=== PATIENT | female | born 1945 | race Caucasian/White ===

== ENCOUNTER → 2017-03-07 | Outpatient (CLI) | payer MEDICARE, MEDICAID ==
[2017-03-07] VITALS (12 sets, daily range): BP systolic 129–163; BP diastolic 60–89; PULSE 64–75
[~2017-03-07] VITALS: Ht 165.1 cm; Wt 81.6 kg
[~2017-03-07] MED LIST: ALBUTEROL0.09 MG/A1 IH; AMITIZA 8MCG8 MCG PO; AMITRIPTYLINE H10 M1 PO; AMOXICILLIN 8751 TAB PO; ANASTROZOLE1 MG PO; ARIMIDEX PO; ARIMIDEX1 MG; ARIMIDEX1 MG PO; ASPIRIN E.C. 8181 MG PO; ATIVAN 0.50.5 MG/TAB PO; ATIVAN1 MG PO; AUGMENTIN; AUGMENTIN 875 M1 TAB PO; BIAXIN; CALCIUM CITRAT200 MG PO; CORDARONE200 MG/TAB PO; CORICIDIN HBP1 EACH; DETROL LA4 PO; DOC-Q-LACE PO; DOCUSATE SODIU100 MG PO; DYAZIDE 25 MG-31 CAP PO; EFFEXOR-XR150 MG PO; ERY-TAB250 MG PO; GERITOL COMPLET1 TA1 PO; GUAIFENESIN PO; HIGH BP MED; HYDROCODONE/APAP PO; IRON; IRON65 M1 PO; KLONOPIN 0.5MG0.5 MG PO; LASIX; LEVAQUIN 5500 MG/TA1 PO; LIPITOR20 MG PO; LOMOTIL 0.025 M1 TAB PO; LORAZEPAM1 MG PO; LORTAB 5/500 501 TAB PO; LORTAB 7.5/5001 TAB PO; MAXZIDE; MAXZIDE-25MG TA1 TAB PO; MECLIZINE25 MG PO; MIRALAX17 GM/DOSE PO; MORPHINE S10 MG/5 M1 PO; NEURONTIN400 MG/CAP PO; NIFEDIPINE10 M1 PO; NIGHT-TIME COL300 ML PO; NORCO 325 MG-51 TAB PO; NORMODYNE100 MG PO; NORMODYNE200 MG PO; OMEPRAZOLE20 MG PO; OMEPRAZOLE40 MG PO; PERCR 7.5 PO; PLAVIX 75MG TAB75 MG PO; PREDNISONE20 MG PO; PREMARIN .3MG0.3 MG PO; PREVACID30 MG PO; PRIL40; PRILOSEC 20MG20 MG PO; PROBIOTIC FORMU1 CAP PO; PROCARDIA 10MG10 MG PO; PROCARDIA10 MG PO; PROFERRIN PO; PROTONIX 40MG T40 MG PO; PROTONIX20 MG PO; REGLAN 10MG10 MG/TAB PO; ROPINIROLE HY0.25 MG PO; SENNA; SINGULAIR PO; STOOL SOFTENER100 M2 PO; TESSALON PERLE100 MG PO; TRIAMTERENE AND1 TA1 PO; TRIAMTERENE W/H1 CAP PO; TUSS PO; VALIUM 2MG T2 MG/TAB PO; VENLAFAXINE75 M1 PO; VENLAFAXINE75 MG PO; VICODIN 5/5001 UDTAB PO; VICODIN PO; VITAMIN C500 MG PO; XANAX .25M0.25 MG/TA PO; XARELTO20 MG PO; ZYRTEC 10MG10 MG PO; [UNRECOGNIZED DRUG - OTHER]; [UNRECOGNIZED DRUG - OTHER]; detrol LA
[2017-03-07 13:05] LABS: PROTHROMBIN TIME 11.5 SECONDS (9.7-12.8)
--- NOTE | 2017-03-07 13:36 | NUR ---
PT IS ON THE TABLE AND DR MATHIAS IS HERE AND WENT OVER THE RISKS AND BENEFITS. PT IS CALM AND RELAXED.
--- NOTE | 2017-03-07 13:46 | NUR ---
GIVEN 0.5MG VERSED AND FENTANYL 25MCG. PT HAS SOME PAIN WHEN GIVEN LIDOCAIN.
--- NOTE | 2017-03-07 13:50 | NUR ---
GIVEN 0.5MG VERSED AND 25MCG FENTANYL.
--- NOTE | 2017-03-07 14:23 | NUR ---
PT BROUGHT BACK TO RAD HOLDING. PT STATES PAIN 05/02. SPOKE TO DR MATHIAS AND REC'D ORDER. PT GIVEN NORCO 5/325MG X1 DOSE.
--- NOTE | 2017-03-07 14:31 | NUR ---
family brought back to rad holding. pt given norco 5/325mg tab.
--- NOTE | 2017-03-07 14:56 | NUR ---
PT RESTING COMFORTABLY WITH EVEN RESP. VSS.
--- NOTE | 2017-03-07 15:38 | NUR ---
DOING WELL. SITTING IN THE RECLINER. PAIN HAS IMPROVED
--- NOTE | 2017-03-07 15:39 | NUR ---
SITTING DOING PUZZLES. FAMILY PRESENT. PAIN IMPROVED
--- NOTE | 2017-03-07 15:40 | NUR ---
PT DRANK APPLE JUICE AND IS NOW GIVEN ICE WATER. PT STATES SHE IS HUNGRY. VSS
--- NOTE | 2017-03-07 15:41 | NUR ---
PT DENIES NEEDS AT PRESENT
== END ==
LOC: COL.RAD 12:22
PROVIDERS: Internal Medicine Pulmonary Disease
DX: C78.7 Secondary malignant neoplasm of liver and intrahepatic bile duct (principal)
CPT/HCPCS: J2250; J3010; Q9967

== ENCOUNTER 2017-04-11 05:20 | Day surgery (SDC) | payer MEDICARE, MEDICAID ==
[~2017-04-11] VITALS: Ht 162.6 cm; Wt 82.5 kg
[~2017-04-11 05:20] MED LIST changes: -AMITIZA 8MCG8 MCG PO; -CORDARONE200 MG/TAB PO; -CORICIDIN HBP1 EACH; -MAXZIDE-25MG TA1 TAB PO; -PROBIOTIC FORMU1 CAP PO; -STOOL SOFTENER100 M2 PO; -XANAX .25M0.25 MG/TA PO; -XARELTO20 MG PO; -ZYRTEC 10MG10 MG PO
[2017-04-11 06:18] VITALS: BP 145/75; PULSE 78; TEMP 97.6
[2017-04-11] MEDS ORDERED: STOOL SOFTENER100 M2 PO (06:35)
[2017-04-11] MEDS ORDERED: AMITIZA 8MCG8 MCG PO (06:36)
[2017-04-11 08:06] VITALS: BP 140/70; PULSE 74; TEMP 98.4
[2017-04-11 08:15] VITALS: BP 131/66; PULSE 68
[2017-04-11 08:30] VITALS: BP 146/72; PULSE 64
[2017-04-11 08:45] VITALS: BP 141/70; PULSE 66
[2017-04-11 09:00] VITALS: BP 148/69; PULSE 65
== END 2017-04-11 09:38 | disposition home or self-care (01) ==
LOC: SDCO 05:20
DX: C78.7 Secondary malignant neoplasm of liver and intrahepatic bile duct (principal); K21.9 Gastro-esophageal reflux disease without esophagitis; I10 Essential (primary) hypertension; G47.33 Obstructive sleep apnea (adult) (pediatric); M19.90 Unspecified osteoarthritis, unspecified site; J44.9 Chronic obstructive pulmonary disease, unspecified; F41.9 Anxiety disorder, unspecified; Z90.13 Acquired absence of bilateral breasts and nipples; Z86.73 Personal history of transient ischemic attack (TIA), and cerebral infarction without residual deficits; Z85.3 Personal history of malignant neoplasm of breast; Z83.3 Family history of diabetes mellitus
CPT/HCPCS: C1788; J0690; J1644; J2250; J2405; J2704; J3010; J7120

== ENCOUNTER → 2018-03-22 | Outpatient (CLI) | payer MEDICARE, MEDICAID ==
[~2018-03-22] MED LIST changes: +AMITIZA 8MCG8 MCG PO; +STOOL SOFTENER100 M2 PO
== END ==
LOC: COL.RAD 08:24
DX: C50.412 Malignant neoplasm of upper-outer quadrant of left female breast (principal); R16.0 Hepatomegaly, not elsewhere classified
CPT/HCPCS: Q9967

== ENCOUNTER → 2018-05-24 | Outpatient (CLI) | payer MEDICARE, MEDICAID | LOC: COL.RAD 12:32 | DX: C50.412 Malignant neoplasm of upper-outer quadrant of left female breast (principal); K76.9 Liver disease, unspecified; N81.89 Other female genital prolapse; Z98.890 Other specified postprocedural states; Z90.710 Acquired absence of both cervix and uterus | CPT/HCPCS: Q9967 ==

== ENCOUNTER 2018-11-22 14:56 | Inpatient (IN) | payer MEDICARE, MEDICAID ==
[~2018-11-22] VITALS: Ht 165.1 cm; Wt 87.5 kg
[2018-11-22] VITALS (123 sets, daily range): BP systolic 129–130; BP diastolic 68–76; PULSE 77–82; TEMP 97.8–98; O2SAT 61–100
[2018-11-22 15:34] LABS: BASO # 0.1 (0.0-0.2); BASO % 1.4 % (0.0-2.0); EOS # 0.1 (0.0-0.7); EOS % 2.5 % (0-4.0); GRAN # 2.2 (1.4-6.5); GRAN % 39.3 % (42.2-75.2); HEMOGLOBIN 10.3 g/dl (12.5-16.0); LYMPH # 2.4 (1.2-3.4); LYMPH % 42.8 % (20.0-51.0); MEAN CELL VOLUME 102 fl (80.0-100.0); MEAN CORPUSCULAR HEMOGLOBIN 32 pg (27.0-31.0); MEAN CORPUSCULAR HGB CONC 31 g/dl (33.0-37.0); MEAN PLATELET VOLUME 9.6 fl (7.4-10.4); MONO # 0.8 (0.1-0.6); MONO % 13.6 % (1.7-9.3); PLATELET COUNT 254 K/mm3 (130-400); RED BLOOD COUNT 3.23 M/mm3 (4.10-5.30); REDCELL DISTRIBUTION WIDTH-CV 16.7 % (11.5-14.5)
[2018-11-22 15:39] LABS: HEMATOCRIT 32.9 % (37.0-47.0)
[2018-11-22 15:40] LABS: ALBUMIN 3.4 gm/dL (3.5-5.0); BILIRUBIN,TOTAL 0.2 mg/dL (0.0-1.0); CALCIUM 9.7 mg/dL (8.4-10.2); CREATININE, serum 1.25 (0.52-1.25); MAGNESIUM 1.8 mg/dL (1.6-2.3); POTASSIUM 4.3 mmol/L (3.4-5.0); TOTAL PROTEIN 6.4 gm/dL (6.4-8.2)
[2018-11-22] MEDS ORDERED: XANAX .25M0.25 MG/TA PO (15:42)
[2018-11-22] MEDS ORDERED: PROTONIX 40MG T40 MG PO (15:43)
[2018-11-22] MEDS ORDERED: MAXZIDE-25MG TA1 TAB PO (15:43)
[2018-11-22] MEDS ORDERED: NEURONTIN400 MG/CAP PO (15:45)
[2018-11-22] MEDS ORDERED: GERITOL COMPLET1 TA1 PO (15:45)
[2018-11-22] MEDS ORDERED: ZYRTEC 10MG10 MG PO (15:45)
[2018-11-22] MEDS ORDERED: CORICIDIN HBP1 EACH (15:46)
[2018-11-22] MEDS ORDERED: PROBIOTIC FORMU1 CAP PO (15:47)
--- NOTE | 2018-11-22 18:00 | NUR ---
Patient arrives to ICU. She is able to transfer from cart to bed. She appears to be in regular rhythm. EKG ordered. No complaints at this time. automation tech called to come perform ECHO at bedside. Assessment completed. All systems WNL. Will continue to monitor.
--- NOTE | 2018-11-22 19:20 | NUR ---
Bedside report given to RACHANA Aponte
--- NOTE | 2018-11-22 19:54 | NUR ---
received report from bashir blanc.
--- NOTE | 2018-11-22 22:21 | NUR ---
called hospitalist to ask for pain medication for my patient. she was complaining of pain in her abdomen. stated it was a 6/10 and a sharp stabbing feeling.
[2018-11-23] VITALS (521 sets, daily range): BP systolic 115–161; BP diastolic 23–84; PULSE 63–120; TEMP 97.6–98.6; O2SAT 38–100
--- NOTE | 2018-11-23 00:40 | NUR ---
PATIENT HAS HAD ABOUT 3 COUGHING SPELLS WHERE HER HEARTRATE SPIKES IN THE 100'S FOR A MINUTE OR SO. THE HIGHEST HER HEART RATE HAS GOTTEN DURING ONE OF THESE COUGHING SPELLS WAS 130. HEART RATE RETURNED TO 73 WITHIN 2 MINUTES OR LESS. WILL CONTINUE TO MONITOR PATIENT.
[2018-11-23 05:21] LABS: BASO # 0.1 (0.0-0.2); BASO % 1.1 % (0.0-2.0); EOS # 0.2 (0.0-0.7); EOS % 3.2 % (0-4.0); GRAN % 37.3 % (42.2-75.2); HEMATOCRIT 31.9 % (37.0-47.0); HEMOGLOBIN 9.9 g/dl (12.5-16.0); LYMPH # 2.5 (1.2-3.4); LYMPH % 46.3 % (20.0-51.0); MEAN CELL VOLUME 104 fl (80.0-100.0); MEAN CORPUSCULAR HEMOGLOBIN 32 pg (27.0-31.0); MEAN CORPUSCULAR HGB CONC 31 g/dl (33.0-37.0); MEAN PLATELET VOLUME 9.4 fl (7.4-10.4); MONO # 0.6 (0.1-0.6); MONO % 11.7 % (1.7-9.3); PLATELET COUNT 188 K/mm3 (130-400); RED BLOOD COUNT 3.06 M/mm3 (4.10-5.30); REDCELL DISTRIBUTION WIDTH-CV 16.6 % (11.5-14.5)
[2018-11-23 05:35] LABS: CALCIUM 9.6 mg/dL (8.4-10.2); CREATININE, serum 1.09 (0.52-1.25); POTASSIUM 4.5 mmol/L (3.4-5.0)
--- NOTE | 2018-11-23 07:42 | NUR ---
gave report to bashir killian.
--- NOTE | 2018-11-23 10:23 | NUR ---
Time Out conducted, Dr Griggs at bedside, anesthesia at bedside. 1024: ROB and cardioversion started.
--- NOTE | 2018-11-23 10:33 | NUR ---
Initial visit; Patient and family thanked Gas Main Fitter for looking in on her and offering Spiritual Care.
--- NOTE | 2018-11-23 10:41 | NUR ---
Pt handed to RN, for recovery
--- NOTE | 2018-11-23 11:21 | NUR ---
Pt d/c'ed from mod sedation recovery, pt awake, denies pain, remains on previous 02 of 2L with spo2 of 98%. Pt in NSR, remains on Cardizem at this time awaiting transition and pt to recieve xarelto per Dr. Mondragon cardiology. Will continue to monitor.
--- NOTE | 2018-11-23 16:18 | NUR ---
HUSAM met with patient and family to disucss discharge planning. Patient reports she lives at home with her brother and plans to return there upon discharge. Patient's PCP is Dr Medina and she obtains prescriptions from [facility]. Patient does not have any home health services and she does have home o2 but no other DME is reported. Patient does have a DPOA in the EMR. SW does not anticipate any discharge needs but will continue to follow as needed.
--- NOTE | 2018-11-23 18:19 | NUR ---
patient arrived to the Medical floor from ICU at this time, she is alert/oriented, denies any problems or concerns, helped her to the bathroom, tele is on she is in SR 65 bpm, multiple family members present i nthe room, she dneies needs
--- NOTE | 2018-11-23 20:30 | NUR ---
Initial shift assessment done- denies pain at this time-- Tele on-SR,, no requests, PAC to right chest
[2018-11-24 03:41] VITALS: BP 135/70; PULSE 59; TEMP 98
--- NOTE | 2018-11-24 05:56 | NUR ---
Quiet night- was up to bathroom with assist throughout the night,, was given [place] once during the night for abd pain. VSS. Tele -SR
[2018-11-24 07:08] LABS: BASO # 0.1 (0.0-0.2); EOS # 0.2 (0.0-0.7); EOS % 3.9 % (0-4.0); GRAN % 40.7 % (42.2-75.2); LYMPH # 2.1 (1.2-3.4); LYMPH % 42.8 % (20.0-51.0); MEAN CELL VOLUME 105 fl (80.0-100.0); MEAN CORPUSCULAR HGB CONC 31 g/dl (33.0-37.0); MEAN PLATELET VOLUME 9.6 fl (7.4-10.4); MONO # 0.6 (0.1-0.6); MONO % 11.4 % (1.7-9.3); PLATELET COUNT 164 K/mm3 (130-400); RED BLOOD COUNT 2.87 M/mm3 (4.10-5.30); REDCELL DISTRIBUTION WIDTH-CV 16.5 % (11.5-14.5)
[2018-11-24 07:12] LABS: HEMOGLOBIN 9.2 g/dl (12.5-16.0); MEAN CORPUSCULAR HEMOGLOBIN 32 pg (27.0-31.0)
[2018-11-24 07:43] VITALS: BP 142/56; PULSE 77; TEMP 98.3
--- NOTE | 2018-11-24 08:10 | NUR ---
PATIENT ASSESSMENT COMPLETED. PATIENT COMPLAINS OF A COUGH THAT IS NON PRODUCTIVE.PRN PAIN MEDICATION GIVEN PER REQUEST.BREAKFAST ORDERED
[2018-11-24] MEDS ORDERED: XARELTO20 MG PO (10:04)
[2018-11-24] MEDS ORDERED: CORDARONE200 MG/TAB PO ×2 (10:08→10:09)
--- NOTE | 2018-11-24 11:20 | NUR ---
Provided spiritual care, listened and visited with the patient. I prayed with the patient before leaving.
--- NOTE | 2018-11-24 12:21 | NUR ---
PATIENT DISCHARGE PAPERWORK GIVEN TO PATIENT, SIGNIFICANT OTHER AND DAUGHTER. THEY DENY FURTHER QUESTIONS. SO WILL CALL ONCOLOGIST MONDAY TO SCHEDULE AND WILL MAKE SURE TO GET SCHEDULE WITHPCP IN 1 WEEK AND CARDIOLOGY IN 2 WEEKS. THEIR OFFICES SHOULD CALL TO SCHEDULE.
--- NOTE | 2018-11-26 16:36 | NUR ---
Discharge orders reviewed with the patient and her daughter, instructed to follow up with PCP as scheduled/ pending labs results with , referral sent to GI to follow up on +FOBT, instructed to use Tylenol for pain/ and follow recs of PCP otherwise, PT/OT referal given, IV removed, she is leaving with her duaghter, i personally escorted her out by wheelchair
== END 2018-11-24 11:50 | disposition home or self-care (01) | DRG 309 ==
LOC: COL.ER 14:56 → ICU 15:54 → MEDICAL 11-23 17:46
PROVIDERS: Emergency Medicine; Family Medicine; ADMIT Hospitalist
DX: I48.91 Unspecified atrial fibrillation (principal); C78.7 Secondary malignant neoplasm of liver and intrahepatic bile duct; Z85.3 Personal history of malignant neoplasm of breast; Z90.10 Acquired absence of unspecified breast and nipple; I10 Essential (primary) hypertension; E78.5 Hyperlipidemia, unspecified; G62.9 Polyneuropathy, unspecified; Z88.1 Allergy status to other antibiotic agents; Z88.7 Allergy status to serum and vaccine; Z87.891 Personal history of nicotine dependence; F41.9 Anxiety disorder, unspecified; I48.92 Unspecified atrial flutter; K59.09 Other constipation
CPT/HCPCS: 99222-AI; 99232-AI; 99239; J1170; J2704; J7030

== ENCOUNTER → 2019-01-02 | Outpatient (CLI) | payer MEDICARE, MEDICAID ==
[~2019-01-02] MED LIST changes: +CORDARONE200 MG/TAB PO; +CORICIDIN HBP1 EACH; +MAXZIDE-25MG TA1 TAB PO; +PROBIOTIC FORMU1 CAP PO; +XANAX .25M0.25 MG/TA PO; +XARELTO20 MG PO; +ZYRTEC 10MG10 MG PO
== END ==
LOC: COL.RAD 01-01 11:00
DX: Z01.812 Encounter for preprocedural laboratory examination (principal); C50.412 Malignant neoplasm of upper-outer quadrant of left female breast; C78.7 Secondary malignant neoplasm of liver and intrahepatic bile duct; J18.1 Lobar pneumonia, unspecified organism
CPT/HCPCS: Q9967

== ENCOUNTER 2019-12-26 11:15 | Emergency (ER) | payer MEDICARE, MEDICAID ==
[~2019-12-26] VITALS: Ht 165.1 cm; Wt 86.8 kg
[2019-12-26 12:30] LABS: BASO % 0.9 % (0.0-2.0); EOS # 0.1 (0.0-0.7); GRAN # 2.1 (1.4-6.5); GRAN % 48.7 % (42.2-75.2); HEMATOCRIT 30.4 % (37.0-47.0); HEMOGLOBIN 9.8 g/dl (12.5-16.0); LYMPH # 1.6 (1.2-3.4); LYMPH % 35.6 % (20.0-51.0); MEAN CELL VOLUME 108 fl (80.0-100.0); MEAN CORPUSCULAR HEMOGLOBIN 35 pg (27.0-31.0); MEAN CORPUSCULAR HGB CONC 32 g/dl (33.0-37.0); MEAN PLATELET VOLUME 9.8 fl (7.4-10.4); MONO # 0.5 (0.1-0.6); MONO % 11.3 % (1.7-9.3); PLATELET COUNT 128 K/mm3 (130-400); RED BLOOD COUNT 2.82 M/mm3 (4.10-5.30); REDCELL DISTRIBUTION WIDTH-CV 15.3 % (11.5-14.5)
[2019-12-26 12:46] LABS: ALBUMIN 3.8 gm/dL (3.5-5.0); BILIRUBIN,TOTAL 0.4 mg/dL (0.0-1.0); CREATININE, serum 1.54 (0.52-1.25); POTASSIUM 4.2 mmol/L (3.4-5.0)
[2019-12-26 14:23] VITALS: BP 156/78; PULSE 56; TEMP 97.5
== END 2019-12-26 14:28 | disposition home or self-care (01) ==
LOC: COL.ER 11:15
PROVIDERS: Emergency Medicine
DX: K59.09 Other constipation (principal); C78.7 Secondary malignant neoplasm of liver and intrahepatic bile duct; I10 Essential (primary) hypertension; E78.5 Hyperlipidemia, unspecified; Z79.82 Long term (current) use of aspirin; Z85.3 Personal history of malignant neoplasm of breast; Z90.13 Acquired absence of bilateral breasts and nipples
CPT/HCPCS: J3010; J7040; Q9967

== ENCOUNTER → 2020-02-11 | Outpatient (CLI) | payer MEDICARE, MEDICAID | LOC: COL.RAD 08:48 | DX: C50.912 Malignant neoplasm of unspecified site of left female breast (principal) | CPT/HCPCS: A9503 ==

== ENCOUNTER 2020-07-17 15:09 | Emergency (ER) | payer MEDICARE, MEDICAID ==
[~2020-07-17] VITALS: Ht 165.1 cm; Wt 85.0 kg
[2020-07-17] MEDS ORDERED: ZOLOFT 100MG100 MG PO (16:08)
[2020-07-17] MEDS ORDERED: SYNTHROID0.05 MG/TA PO (16:09)
[2020-07-17] MEDS ORDERED: CARDIZEM120 MG PO (16:09)
[2020-07-17] MEDS ORDERED: FLEXERIL5 MG PO (16:10)
[2020-07-17] MEDS ORDERED: NORCO 325 MG-7.1 TAB PO (16:10)
[2020-07-17] MEDS ORDERED: PHENERGAN 25 TA25 MG PO (16:11)
[2020-07-17] MEDS ORDERED: AMITIZA 8MCG8 MCG PO (16:11)
[2020-07-17 16:47] LABS: BASO # 0.1 (0.0-0.2); BASO % 0.8 % (0.0-2.0); EOS # 0.2 (0.0-0.7); GRAN # 6.1 (1.4-6.5); GRAN % 68.1 % (42.2-75.2); LYMPH # 1.6 (1.2-3.4); LYMPH % 18.3 % (20.0-51.0); MEAN CELL VOLUME 108 fl (80.0-100.0); MEAN CORPUSCULAR HGB CONC 31 g/dl (33.0-37.0); MEAN PLATELET VOLUME 10.4 fl (7.4-10.4); MONO # 0.9 (0.1-0.6); MONO % 10.5 % (1.7-9.3); PLATELET COUNT 124 K/mm3 (130-400); RED BLOOD COUNT 2.81 M/mm3 (4.10-5.30); REDCELL DISTRIBUTION WIDTH-CV 17.3 % (11.5-14.5)
[2020-07-17 16:58] LABS: ALANINE AMINOTRANSFERASE 42 U/L (4-34); ALKALINE PHOSPHATASE 179 U/L (50-136); ANION GAP 5 mmol/L (7-16); AST,SGOT 73 U/L (15-37); BILIRUBIN,TOTAL 0.5 mg/dL (0.0-1.0); BLOOD UREA NITROGEN 25 mg/dL (7-17); CALCIUM 9.4 mg/dL (8.4-10.2); CARBON DIOXIDE 25 mmol/L (22-30); CHLORIDE 105 mmol/L (98-107); CREATININE, serum 1.38 (0.52-1.25); GLUCOSE 103 mg/dL (74-106); LIPASE 58 U/L (23-300); POTASSIUM 4.3 mmol/L (3.4-5.0); SODIUM 134 mmol/L (137-145)
[2020-07-17 17:03] LABS: HEMATOCRIT 30.2 % (37.0-47.0); HEMOGLOBIN 9.4 g/dl (12.5-16.0); MEAN CORPUSCULAR HEMOGLOBIN 33 pg (27.0-31.0)
[2020-07-17 17:25] LABS: TROPONIN-I < 0.012 ng/mL (0.000-0.035)
[2020-07-17] MEDS ORDERED: DILAUDID 2MG TAB2 MG PO (18:18)
[2020-07-17 18:20] LABS: COLLECTION METHOD CLEAN CATCH
[2020-07-17 18:35] LABS: MUCOUS Present /lpf; PH 5 (5-8); URINE APPEARANCE Clear; URINE BACTERIA None Seen /hpf; URINE BILIRUBIN Negative (NEGATIVE); URINE BLOOD Negative (NEGATIVE); URINE CALCIUM OXALATE CRYSTAL Present /hpf; URINE COLOR Yellow; URINE GLUCOSE Negative (NEGATIVE); URINE KETONE Negative (NEGATIVE); URINE LEUKOCYTE ESTERASE Trace (NEGATIVE); URINE NITRATE Negative (NEGATIVE); URINE PROTEIN(semi-quant) Negative (NEGATIVE)
[2020-07-17 18:57] VITALS: BP 126/64; PULSE 61; TEMP 98.4
[2020-07-17] MEDS ORDERED: MACROBID 1100 MG/CAP PO ×2 (18:59)
[2020-07-17] MEDS ORDERED: LEVAQUIN 750MG750 M1 PO (19:04)
== END 2020-07-17 19:10 | disposition home or self-care (01) ==
LOC: COL.ER 15:09
PROVIDERS: Emergency Medicine
DX: G89.29 Other chronic pain (principal); Z88.1 Allergy status to other antibiotic agents; Z79.82 Long term (current) use of aspirin

== ENCOUNTER 2020-09-07 11:45 | Inpatient (IN) | payer MEDICARE, MEDICAID ==
[~2020-09-07] VITALS: Ht 165.1 cm; Wt 91.4 kg
[~2020-09-07 11:45] MED LIST changes: +CARDIZEM120 MG PO; +DILAUDID 2MG TAB2 MG PO; +FLEXERIL5 MG PO; +LEVAQUIN 750MG750 M1 PO; +MACROBID 1100 MG/CAP PO; +NORCO 325 MG-7.1 TAB PO; +PHENERGAN 25 TA25 MG PO; +SYNTHROID0.05 MG/TA PO; +ZOLOFT 100MG100 MG PO
[2020-09-07 13:03] LABS: LACTIC ACID 2.3 mmol/L (0.4-2.0)
[2020-09-07 13:18] LABS: ARTERIAL BLD GAS TCO2 CT 24.5; ARTERIAL BLOOD GAS BASE EXCESS 0.4 (-2-2); ARTERIAL BLOOD GAS HCO3 23.5 meq/L (22-26); ARTERIAL BLOOD GAS PCO2 32.4 mmHg (35-45); ARTERIAL BLOOD GAS PO2 90.3 mmHg (80-100); ARTERIAL BLOOD GAS pH 7.48 (7.35-7.45)
[2020-09-07 13:27] LABS: MEAN CELL VOLUME 100 fl (80.0-100.0); MEAN CORPUSCULAR HGB CONC 32 g/dl (33.0-37.0); MEAN PLATELET VOLUME 13.5 fl (7.4-10.4); PLATELET COUNT 52 K/mm3 (130-400); RED BLOOD COUNT 2.71 M/mm3 (4.10-5.30); REDCELL DISTRIBUTION WIDTH-CV 21.3 % (11.5-14.5)
[2020-09-07 13:35] LABS: HEMATOCRIT 27.2 % (37.0-47.0); HEMOGLOBIN 8.8 g/dl (12.5-16.0); MEAN CORPUSCULAR HEMOGLOBIN 32 pg (27.0-31.0)
[2020-09-07 13:38] LABS: ALBUMIN 2.3 gm/dL (3.5-5.0); BILIRUBIN,TOTAL 1.5 mg/dL (0.0-1.0); CALCIUM 9.1 mg/dL (8.4-10.2); CREATININE, serum 1.73 (0.52-1.25); POTASSIUM 3.5 mmol/L (3.4-5.0)
[2020-09-07 13:52] LABS: INR 1.1 (0.8-3.0); PROTHROMBIN TIME 11.8 SECONDS (9.7-12.8)
[2020-09-07 13:54] LABS: PARTIAL THROMBOPLASTIN TIME 26.7 SECONDS (26.0-37.0)
[2020-09-07 14:00] LABS: TROPONIN-I 0.163 ng/mL (0.000-0.035)
[2020-09-07 14:11] LABS: C-REACTIVE PROTEIN 32.4 mg/dL (0.0-0.9)
[2020-09-07 14:18] LABS: D-DIMER > 5250.00 ng/mLDDu (200-230)
[2020-09-07 14:35] LABS: BAND 12 % (0-10); BASOPHIL 2 % (0-2); LYMPHOCYTE 51 % (20.0-51.0); METAMYELOCYTE 8 % (0-0); MYELOCYTE 1 % (0-0); NEUTROPHILS 16 % (42.0-75.2)
[2020-09-07 14:38] LABS: TEAR DROP CELLS 2+
[2020-09-07 14:39] LABS: COLLECTION METHOD CLEAN CATCH
[2020-09-07 14:39] LABS: OVALOCYTES 1+; SCHISTOCYTES 1+
[2020-09-07 14:50] LABS: MUCOUS Present /lpf; PH 5 (5-8); SQUAMOUS EPITHELIAL 0-2 /hpf; URINE APPEARANCE Hazy; URINE BACTERIA Rare /hpf; URINE BILIRUBIN Negative (NEGATIVE); URINE BLOOD 2+ (NEGATIVE); URINE COLOR Amber; URINE GLUCOSE Negative (NEGATIVE); URINE KETONE Negative (NEGATIVE); URINE LEUKOCYTE ESTERASE Negative (NEGATIVE); URINE NITRATE Negative (NEGATIVE); URINE PROTEIN(semi-quant) Negative (NEGATIVE); URINE UROBILINOGEN >=4.0 mg/dL (NEGATIVE)
[2020-09-07] MEDS ORDERED: SYNTHROID0.075 MG/T PO (16:59)
[2020-09-07] MEDS ORDERED: ZOLOFT 100MG100 MG PO (16:59)
[2020-09-07 17:00] VITALS: BP 123/45; PULSE 92; TEMP 98.7
[2020-09-07] MEDS ORDERED: ASPIRIN 81M81 MG/TA2 PO (17:00)
[2020-09-07] MEDS ORDERED: CARTIA XT120 MG PO (17:00)
[2020-09-07] MEDS ORDERED: PHENERGAN 25 TA25 MG PO (17:01)
[2020-09-07] MEDS ORDERED: PROMACTA25 MG PO (17:01)
[2020-09-07] MEDS ORDERED: PROTONIX 40MG T40 MG PO (17:02)
[2020-09-07] MEDS ORDERED: CENTRUM SILVER1 CTB PO (17:02)
[2020-09-07] MEDS ORDERED: NEURONTIN800 MG/TAB PO (17:03)
[2020-09-07] MEDS ORDERED: NORCO 325 MG-101 TAB PO (17:03)
[2020-09-07] MEDS ORDERED: XANAX .25M0.25 MG/TA PO (17:04)
[2020-09-07] MEDS ORDERED: FLEXERIL5 MG PO (17:04)
[2020-09-07] MEDS ORDERED: AMITIZA 8MCG8 MCG PO (17:05)
[2020-09-07] MEDS ORDERED: DILAUDID 2MG TAB2 MG PO (17:12)
[2020-09-07] MEDS ORDERED: PREDNISONE20 MG PO (17:14)
[2020-09-07] MEDS ORDERED: LASIX 20MG TABL20 MG PO (17:14)
[2020-09-07] MEDS ORDERED: CLARITIN 1010 MG/TAB PO (17:14)
--- NOTE | 2020-09-07 19:35 | NUR ---
Patient admitted to room 345 from ER. Report from Brian. Patient arousable to name, but sleeps easy. Not able to get much health history from patient. Med list obtained from Er nurse, she was not able to verify medications herself. I did speak with on the phone to clarify orders. Port access by Er nurse-Ns started per orders & heparin drip per orders. Verified with Savannah Frias who will resume cares for nightshift. Patient cousin her point of contact & designated visitor. Attempted to sit patient straight up and give a sip of water-it was not safe & she had hardly any water and coughed instantly. I was unable to give cardizem, it is unsafe. Patient will need to be seen by speech.
--- NOTE | 2020-09-07 19:55 | NUR ---
Patient assessed at this time. Patient very drowsy, but does awaken with tactile stimuli. Answers yes and no questions. Remains NPO due to choking on small sip of water. Voices understanding. No s/sx of pain or discomfort at this time. Port to right chest. Fluids running per orders, as well as Heparin drip per orders. LS faint crackles throughout. Respirations even and unlabored. On oxygen at 2.5 L/min via NC. HRR. Telemetry in place. Capillary refill less than 3 seconds. Non-tenting skin turgor. BSAx4. Abdomen soft and non-tender. 2+ edema BLE. Redness to bottom and heels, blanchable. Bruising/skin tears to bilateral forearms and knees. Resting in bed with call light within reach. High fall risk precautions remain in place.
[2020-09-07 20:07] VITALS: BP 130/49; PULSE 72; TEMP 97.4
[2020-09-07 23:46] VITALS: BP 127/51; PULSE 62; TEMP 98.5
--- NOTE | 2020-09-08 01:22 | NUR ---
Patient's potassium yesterday was 3.5, with GFR of 29. Patient not able to take potassium orally. Replaced via central line at this time per protocol orders. HepXa also drawn, awaiting results at this time.
--- NOTE | 2020-09-08 01:28 | NUR ---
HepXa 1.98. Per protocol, Heparin drip put on hold at this time. Will recheck HepXa at 0330. Verrified by charge nurse.
[2020-09-08 03:43] LABS: MEAN CELL VOLUME 100 fl (80.0-100.0); MEAN CORPUSCULAR HGB CONC 32 g/dl (33.0-37.0); PLATELET COUNT 50 K/mm3 (130-400); RED BLOOD COUNT 2.44 M/mm3 (4.10-5.30); REDCELL DISTRIBUTION WIDTH-CV 21.2 % (11.5-14.5)
[2020-09-08 03:54] LABS: HEMATOCRIT 24.5 % (37.0-47.0); HEMOGLOBIN 7.8 g/dl (12.5-16.0); MEAN CORPUSCULAR HEMOGLOBIN 32 pg (27.0-31.0)
[2020-09-08 03:55] LABS: ALBUMIN 2.1 gm/dL (3.5-5.0); BILIRUBIN,TOTAL 1.4 mg/dL (0.0-1.0); CALCIUM 8.5 mg/dL (8.4-10.2); CREATININE, serum 1.69 (0.52-1.25); MAGNESIUM 1.8 mg/dL (1.6-2.3); TOTAL PROTEIN 4.5 gm/dL (6.4-8.2)
--- NOTE | 2020-09-08 04:00 | NUR ---
HepXa 0.45. Restarted Heparin drip at 13.5 ml/hr, 1350 units/hr per protocol. Verified by charge nurse. Will recheck HepXa at 1000. Orders updated.
[2020-09-08 04:02] LABS: PRE ALBUMIN 8.6 mg/dL (17.6-36.0)
[2020-09-08 04:03] VITALS: BP 153/51; PULSE 77; TEMP 98.3
[2020-09-08 04:11] LABS: TROPONIN-I 0.111 ng/mL (0.000-0.035)
[2020-09-08 04:49] LABS: BAND 10 % (0-10); LYMPHOCYTE 50 % (20.0-51.0); METAMYELOCYTE 2 % (0-0); NEUTROPHILS 20 % (42.0-75.2); NUCLEATED RED BLOOD CELL 2 (0-6)
[2020-09-08 04:50] LABS: ANISOCYTOSIS 2+; HYPOCHROMIA 2+; PLATELET ESTIMATE DECREASED (NORMAL)
[2020-09-08 04:51] LABS: SCHISTOCYTES 2+
[2020-09-08 04:52] LABS: TARGET CELLS 2+; TEAR DROP CELLS 1+
--- NOTE | 2020-09-08 06:18 | NUR ---
Patient has been resting in bed with call light christiane valles. Has denied having pain and discomfort this shift. Did request drink of water this morning. Reminded patient that due to choking, she is NPO. Voiced understanding. Patient incontinent of bladder. Purewick in place.
[2020-09-08 08:16] VITALS: BP 130/64; PULSE 104; TEMP 98
--- NOTE | 2020-09-08 08:52 | NUR ---
HELEN MADERA CALLED AND NOTIFIED OF BLOOD CLOT IN PATIENTS LEFT POPLITEAL VEIN. CONTINUE HEPARIN DRIP FOR NOW. NO OTHER ORDERS AT THIS TIME.
--- NOTE | 2020-09-08 10:00 | NUR ---
HEPXA RESULTED AT 0.38. NO CHANGE NEEDED AT THIS TIME. NEXT HEPXA DRAW AT 1600.
--- NOTE | 2020-09-08 10:27 | NUR ---
Initial visit; Patient had difficulty speaking however she and Micro Computer Specialist did communicate rather well. They spoke of Brenna's age being the same as Micro Computer Specialist's and how much in common they most likely have. Micro Computer Specialist prayed with Brenna about giving her life over to God and in doing so she knows she will most likely be with Him before we will and how glorious for her that will be. She thanked Micro Computer Specialist for comforting her and offering prayer and assurance.
--- NOTE | 2020-09-08 10:44 | NUR ---
HUSAM attended clinical rounds. 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 The hospitalist notified HUSAM that he spoke to the patient's oncologist and chemotherapy will be on hold for at least a month or so. The hospitalist addressed the discussion of hospice with the patient. The patient stated no and would like to pursue aggressive care. The hospitalist then informed HUSAM that post-acute would be recommended upon discharge. HUSAM followed up with the patient to discuss discharge plan. The patient sounded short of breath during intake and HUSAM had a hard time hearing and understanding her. The patient stated that she would like for her bother, Favian (ph#[phone]), to come up here. HUSAM then contacted the patient's brother, Favian, to complete intake and to update. The patient lives in [place] with Favian and their cousin, Donald (ph#[phone]). He reports that the patient bathes on her own, but they help her to the restroom. She has a cane and walker. The patient's PCP is Dr. Brenna Medina and she receives her medications from [facility]. Favian reports no difficulties obtaining her meds. The patient's DPOA-HC is in EMR and it designates her brother (Favian), daughter (Arabella, ph#[phone]), and son (Darian). Arabella lives in [place] and Darian lives in [place]. Favian states Arabella plans to head up to [place] at the end of the week. He asked that that patient's one visitor be switched to Arabella when she arrives. HUSAM to ask the floor sander. HUSAM then informed Favian of the hospitalist recommendation for post-acute rehab, since the patient is not interested in hospice care. HUSAM informed Favian of the different SNFs around the [place] area. Favian would like to talk to Arabella first before sending any referrals. A palliative care consult was ordered. HUSAM to continue to follow.
[2020-09-08 11:29] VITALS: BP 121/51; PULSE 88; TEMP 98
--- NOTE | 2020-09-08 12:19 | NUR ---
PATIENT WAS UNABLE TO TAKE CARDIZEM AND PO NORCO WITH SPEECH THERAPY. PATIENT HAD ALOT OF CHOKING AND COUGHING WITH MEDICATIONS. PATIENT ABLE TO TOLERATE SOME SMALLER PILLS. SPEECH THERAPY RECCOMENDING TO KEEP THE PATIENT NPO.
--- NOTE | 2020-09-08 15:07 | NUR ---
I tried to talk with patient this afternoon. She is short of breath and her voice is almost a whisper with poor breath support. She is thristy and wants to drink but did agree to try the sponges to moisten her mouth. She choked after using them. She did request a pain pill and this was passed on to her nurse. She is very tired and feeling very weak. She reports this happens after her chemotherapy but usually not this bad. She recieved [place] on 09/03 and neulasta on 09/04. She had been using a cane and then a walker but had to start using the walker with a seat recently. her brother Favian Bellamy lives with her in a family home along with a cousin Donald Denson. Favian did report that her daughter, Arabella Greene is trying to come up from [place] on Monday to visit her mother. Pt is not ready for hospice services yet. In her current state, she is not able to recieve further chemotherapy until she is able to improve her stamina, strength, and counts. Pt has a blood clot in her leg and is on heparin but platelets are low. DONOVAN, SIRS and ? LLL pneumonia are all findings with this admission.
[2020-09-08 16:00] VITALS: BP 131/46; PULSE 99; TEMP 97.7
--- NOTE | 2020-09-08 16:00 | NUR ---
HEPXA RESULTED AT 0.55. NO CHANGE NEEDED. NEXT HEPXA DRAW AT 0500 ON 09/09/20. HEPXA ORDERS ENTERED.
--- NOTE | 2020-09-08 19:00 | NUR ---
PATIENT GIVEN PRN IV PAIN MEDICATION NEEDED. WILL REPORT OFF TO ONCOMING NURSE.
--- NOTE | 2020-09-08 20:30 | NUR ---
Patient assessed at this time. Very drowsy, but awakens to tactile stimuli. Denies having pain and discomfort when asked. No s/sx of pain or discomfort noted such as facial grimacing and moaning. On oxygen at 4 L/min via NC. LS CTA in upper lobes, fine crackles in lower. Patient had just finished nebulizer treatment. Respirations even and unlabored. HR-tachycardia. Telemetry in place. Capillary refill less than 3 seconds. Non-tenting skin turgor. BSAx4. Abdomen soft and non-tender. 2+ edema BLE. Patient has multiple abrasions and bruising to BUE and BLE. Patient has purewick external catheter. Resting in bed with call light within reach. High fall risk precautions in place.
[2020-09-08 21:25] VITALS: BP 138/51; PULSE 97
[2020-09-08 22:49] LABS: ARTERIAL BLD GAS O2 SATURATION 86.9 % (92-100); ARTERIAL BLOOD GAS BASE EXCESS -5.7 (-2-2); ARTERIAL BLOOD GAS HCO3 18.1 meq/L (22-26); ARTERIAL BLOOD GAS PCO2 29.2 mmHg (35-45); ARTERIAL BLOOD GAS PO2 56.3 mmHg (80-100); ARTERIAL BLOOD GAS pH 7.41 (7.35-7.45)
--- NOTE | 2020-09-08 22:50 | NUR ---
Patient's SPO2 in the 80s on oxygen at 4 L/min via NC. Patient keeps taking oxygen out of nose. Put on oxygent at 10 L/min via NC. Increased to 90%. Called RT and udpated, then called HELEN Irving and updated. New order for ABG and CXR. Notified radiology and RT. Maria Fernanda came and spoke with patient. Confirmed patient is DNR/DNI with patient. Patient put on oxymask due to pulling down NC. SPO2 95% at this time. CXR beign obtained. Patient voices no questions, needs, or concerns at this time. Resting in bed with call light within reach.
[2020-09-08 23:51] VITALS: BP 138/46; PULSE 94; TEMP 98.1
[2020-09-09 04:53] VITALS: BP 141/52; PULSE 87; TEMP 97.5
--- NOTE | 2020-09-09 05:21 | NUR ---
Patient's oxygen saturations 91% on oxygen at 10 L/min via oxymask. Patient repositioned and changed in bed. Afterwards given PRN Roxanol for pain. SPO2 currently at 94% on oxygen at 10 L/min via NC. Voices no questions, needs, or concerns at this time. Resting in bed with call light within reach.
[2020-09-09 06:35] LABS: MEAN CELL VOLUME 98 fl (80.0-100.0); MEAN CORPUSCULAR HGB CONC 33 g/dl (33.0-37.0); RED BLOOD COUNT 2.48 M/mm3 (4.10-5.30); REDCELL DISTRIBUTION WIDTH-CV 21.4 % (11.5-14.5)
[2020-09-09 06:40] LABS: HEMATOCRIT 24.3 % (37.0-47.0); HEMOGLOBIN 7.9 g/dl (12.5-16.0); MEAN CORPUSCULAR HEMOGLOBIN 32 pg (27.0-31.0)
[2020-09-09 06:42] LABS: PLATELET COUNT 42 K/mm3 (130-400)
[2020-09-09 06:46] LABS: ALBUMIN 2.1 gm/dL (3.5-5.0); BILIRUBIN,TOTAL 1.2 mg/dL (0.0-1.0); CALCIUM 8.6 mg/dL (8.4-10.2); CREATININE, serum 1.59 (0.52-1.25); MAGNESIUM 1.8 mg/dL (1.6-2.3); POTASSIUM 3.6 mmol/L (3.4-5.0); TOTAL PROTEIN 4.6 gm/dL (6.4-8.2)
[2020-09-09 07:13] LABS: BAND 10 % (0-10); LYMPHOCYTE 28 % (20.0-51.0); NEUTROPHILS 48 % (42.0-75.2); NUCLEATED RED BLOOD CELL 3 (0-6); PLATELET ESTIMATE DECREASED (NORMAL)
[2020-09-09 07:14] LABS: ANISOCYTOSIS 2+; BURR CELLS 1+; HYPOCHROMIA 1+; TARGET CELLS 1+
[2020-09-09 07:15] LABS: OVALOCYTES 1+
[2020-09-09 07:16] LABS: HOWELL-JOLLY BODIES 1+; SCHISTOCYTES 1+
[2020-09-09 10:13] VITALS: BP 145/48; PULSE 99; TEMP 98.2
--- NOTE | 2020-09-09 10:45 | NUR ---
AM SHIFT ASSESSMENT COMPLETED AT THIS TIME. MORNING MEDICATIONS ADMINISTERED. PATIENT IS MINIMALLY RESPONSIVE THIS MORNING. O2 AT 10L VIA OXYMASK. WILL CONTINUE TO MONITOR.
--- NOTE | 2020-09-09 10:52 | NUR ---
I spoke with Favian Bellamy DPOA-HC and with Arabella Greene DPOA-HC by phone to explain that Brenna is not doing well and we are very concerned abouther condition. Pt is really not able to talk with me at all. I did tell her that her daughter Arabella and her son are making plans to come today to see her and to talk about her care. I talked with Favian and Arabella about her inability to swallow safely and that a feeding tube is a consideration but not sure how well she would tolerate the procedure. Her oxygen needs have increased as has her swelling. her WBC have increased but are still very low (Neutropenic) and her platelets are low. We have removed her watch and two rings due to her swelling at the daughter's request and will give them to Favian when he arrives per primary nurse Conchita. I did talk with Trinidad Wu about allowing her son and daughter to visit when they arrive so that they can see her and her condition for a palliative family meeting. Pt remains NPO, on 02 by mask to meet her increasing needs.
--- NOTE | 2020-09-09 11:47 | NUR ---
THIS NURSE CALLED AND SPOKE WITH HELEN CALLE. LABS WAS HAVING DIFFICULTIES DRAWING THE PATIENTS HEPXA, LAB WAS DRAWN OFF PORT WHICH RESULTED IN A CRITICAL HIGH HEPXA LEVEL. FAMILY IS 5 HOURS AWAY AND JUST NOW GETTING ON THE ROAD. THIS NURSE SPOKE WITH THE BROTHER WHEN HE CAME OUT OF THE ROOM AND HE WAS GIVEN THE PATIENTS TWO RINGS AND WATCH. HELEN CALLE STATED TO HOLD OFF ON HAVING LAB RE-DRAW THE PATIENT AND SHE WILL TOUCH BASE WITH .
--- NOTE | 2020-09-09 14:23 | NUR ---
THIS NURSE SPOKE WITH HELEN CALLE AGAIN REGARDING THE PATIENTS HEPXA CRITICAL RESULT AT 1100 AND IF WANTED LAB RE-DRAWN OR NOT. ORDERS TO NOT RE-DRAW THE HEPXA AT THIS TIME. WILL SPEAK WITH FAMILY WHEN THEY ARRIVE, KEEP PATIENT COMFORTABLE.
--- NOTE | 2020-09-09 14:27 | NUR ---
HUSAM staffed with palliative care nurse, Liz. The patient status has declined. The patient's daughter and son are on their way up from [place] and [place] and state that it is a [address] Plan is to have a pallitiave care meeting with the family when they arrive.
[2020-09-09 15:45] VITALS: BP 135/47; PULSE 108; TEMP 98.1
--- NOTE | 2020-09-09 18:35 | NUR ---
PATIENTS FAMILY ARRIVED. HELEN MADERA NOTIFIED. PATIENT GIVEN PRN DOSE OF IV ATIVAN FOR LABORED BREATHING. WILL REPORT OFF TO ONCOMING NURSE.
--- NOTE | 2020-09-09 19:53 | NUR ---
Heparin gtt discontinued. Patient given another dose of roxonal and scopalamine patch applied. Family at bedside. Patient's breathing is labored.
--- NOTE | 2020-09-09 23:29 | NUR ---
Patient in bed unresponsive with labored breathing. PRN roxanol and ativan given. Patient cleaned up and a purewick was placed. Family is at bedside.
--- NOTE | 2020-09-10 07:30 | NUR ---
PATIENT IS NON-RESPONSIVE. DNR. COMFORT CARES WITH TELE INPLACE. NOTED AGONAL BREATHING. GAVE PRN IV MORPHINE. NOTED +4 PITTING EDEMA IN BUE & BLE. PURE WICK INPLACE. NOTED ABRASIONS TO BUE AND BLE FROM PREVIOUS FALLS AT HOME. HEAD TO TOE ASSESSMENT COMPLETE. RIGHT PORT TO INT. NPO. FAMILY AT BEDSIDE.
--- NOTE | 2020-09-10 08:25 | NUR ---
PALLIATIVE CARE NURSE AT BEDSIDE TALKING WITH FAMILY.
--- NOTE | 2020-09-10 09:18 | NUR ---
Follow-up with family following Brenna's . shared that she had ministered to Brenna earlier and that she seemed to like hearing speak of God waiting for her where there will be no more pain or sorrow and She will be there waiting for us in "His glory." said the Psalm and The Lord's Prayer for family and at Brenna's son's request offered God's Words of Healing and Saving of his soul. suggested that he attend a jewish where he is comfortable and presented him with a Bible and a Bible reading program.
--- NOTE | 2020-09-10 10:28 | NUR ---
TELE CALLED, PATIENT IS ASYSTOLE. NOTED PATIENT WITH NO HEART BEAT, PULES OR RESPIRATIONS. VISUALIZED TWO POSTMORTEM SPASMS. TWO FAMILY MEMBERS AT BEDSIDE AT TIME OF . NOTIFIED HOSPITALIST, PALLIATIVE CARE NURSE, AND TELE MONITOR. FAMILY CALLED DAUGHTER WHO RECENTLY WENT HOME TO SLEEP.
--- NOTE | 2020-09-10 10:30 | NUR ---
OXYGEN TURNED OFF. NATALIO GARCIAS'Anna.
--- NOTE | 2020-09-10 11:10 | NUR ---
Called to bedside by primary nurse Sakina as has just occcured. Son and brother were at bedside, daughter and cousin have just arrived. Assemblyman Or Woman in to comfort family. Support provided.
--- NOTE | 2020-09-10 11:11 | NUR ---
[facility] notified referral # [id number], awaiting referral to the eye bank, cannot release the body at this time.
--- NOTE | 2020-09-10 11:57 | NUR ---
The patient . Tree Trimming Line Technician was notified and [facility] was contacted. The patient is a candidate. SW followed up with the patient's daughter, Arabella, and provided support. Arabella reports that they have not chosen a home yet. She states that her family is going to [facility] right now to see if they want to use them or a different one.
--- NOTE | 2020-09-10 13:08 | NUR ---
Family has chosen [facility] home and has declined eye donation. [employer] was called. Patient glasses sent with
--- NOTE | 2020-09-10 13:12 | NUR ---
The patient's family chose [facility]. Front Window Cashier contacted the home.
--- NOTE | 2020-09-10 13:30 | NUR ---
SELECTED AND NOW ON THEIR WAY. FAMILY STEPPED OUT, POSTMORTEM CARE PROVIDED. DC'D RIGHT CHEST PORT ACCESS. PERSONAL BELONGINGS SET ASIDE FOR FAMILY.
--- NOTE | 2020-09-10 13:55 | NUR ---
PATIENT DISCHARGED WITH SERVICE. FAMILY TOOK PERSONAL BELONINGS.
== END 2020-09-10 13:55 | disposition expired | DRG 177 ==
LOC: COL.ER 11:45 → SURG 16:30 → COL.ER 16:30 → SURG 23:00
PROVIDERS: Emergency Medicine; Student in an Organized Health Care Education/Training Program; ADMIT Internal Medicine
DX: J69.0 Pneumonitis due to inhalation of food and vomit (principal); D61.810 Antineoplastic chemotherapy induced pancytopenia; J96.21 Acute and chronic respiratory failure with hypoxia; I21.A1 Myocardial infarction type 2; I26.99 Other pulmonary embolism without acute cor pulmonale; C78.7 Secondary malignant neoplasm of liver and intrahepatic bile duct; N17.9 Acute kidney failure, unspecified; I50.22 Chronic systolic (congestive) heart failure; Z66 Do not resuscitate; Z51.5 Encounter for palliative care; I82.432 Acute embolism and thrombosis of left popliteal vein; R65.10 Systemic inflammatory response syndrome (SIRS) of non-infectious origin without acute organ dysfunction; C50.919 Malignant neoplasm of unspecified site of unspecified female breast; E78.5 Hyperlipidemia, unspecified; F41.9 Anxiety disorder, unspecified; I11.0 Hypertensive heart disease with heart failure; G62.9 Polyneuropathy, unspecified; R62.7 Adult failure to thrive; I45.10 Unspecified right bundle-branch block; K21.9 Gastro-esophageal reflux disease without esophagitis; K44.9 Diaphragmatic hernia without obstruction or gangrene; E03.9 Hypothyroidism, unspecified; F32.9 Major depressive disorder, single episode, unspecified; R13.10 Dysphagia, unspecified; R74.01 Elevation of levels of liver transaminase levels; K59.09 Other constipation; I48.91 Unspecified atrial fibrillation; T45.1X5A Adverse effect of antineoplastic and immunosuppressive drugs, initial encounter; Z20.822 Contact with and (suspected) exposure to COVID-19; Z90.13 Acquired absence of bilateral breasts and nipples; Z87.891 Personal history of nicotine dependence
CPT/HCPCS: 99223-AI; 99233-AI; 99239; A9284; C9113; J0692; J1170; J1447; J1644; J1940; J2060; J2270; J2920; J3370; J3480; J7030; J7050